=== PATIENT | female | born 1955 | race African-American/Black ===

== ENCOUNTER → 2016-04-07 | Day surgery (SDC) | payer OTHER, MEDICAID ==
[~2016-04-07] MED LIST: ALLO100T PO; CARI350T PO; CARV25TA PO; CETI10TA22 PO; CLON0.1T PO; CLOP75TA PO; CLOT15CR5; COLC0.6T34 PO; CRESTOR40 MG PO; ESTR1TAB15 PO; ESTR2TAB PO; EZET10TA3 PO; FENT1PAT15 TP; FERR-26 PO; FLUT16SP; FURO-68 PO; GABA-586 PO; GLIM4TAB2 PO; GLYB5TAB3 PO; HYDR-2868 PO; INSU100C4 SQ; INSU100V13 SQ; INSU100V8 SQ; IV RINGERS,LACTATED 1000ML 1,000 ML IV SCH; LIDO700A4 TP; LISI1TAB7 PO; LORA10TA3 PO; MAGN400C PO; METO10TA PO; METO2.5T PO; NALO25TA2 PO; NITR0.4T SL; OLOP2.5D EACHEYE; OXYC15TA PO; PANT40TA5 PO; POTA20TA12 PO; POTA25TA4 PO; PROAIR HFA8.5 GM INH; PROPOFOL 20 ML IV ONE; PROPOFOL 40 ML IV ONE; RANO10002 PO; [UNRECOGNIZED DRUG - OTHER]
--- NOTE | 2016-04-07 10:20 | PDOC1 ---
HISTORY & PHYSICAL H&P Adelaide Salmon [id number] 1955 03/04/2016 02:00 PM 03/23 [employer] [facility], [employer] OUR PATIENTS COME FIRST [address] [place] [address] Ph. [phone] Patient: Adelaide Salmon Date of : 1955 Date: 03/04/2016 2:00 PM Historian: self Visit Type: Office Visit This 60 year old female presents for H/o colorectal polyp. History of Present Illness: 1. H/o colorectal polyp Prior screening: colonoscopy. Risk Factors: h/o colon polyp.. Pertinent negatives include abdominal pain, change in bowel habits, change in stool caliber, constipation, decreased appetite, diarrhea, melena, nausea, rectal bleeding, vomiting, weight gain and weight loss. Additional information: No family history of colon cancer, No family history of Crohn's/colitis, No NSAID/ ASA use and Last colonoscopy 5 yrs ago. INTAKE COMMENTS: Intake Comments: Nurses Notes: Pt is here today for a recall colonoscopy pt has a history of colon polyps pt last colonoscopy was performed in Dec 2010. PROBLEM LIST: Problem Description Onset Date Epigastric pain 05/01/2015 Hematemesis, nausea presence unspecified 05/01/2015 Chronic pain 04/09/2010 Nephritis NOS in other disease 12/15/2013 Acute pain of right knee 04/19/2015 Postprocedural state finding 09/22/2011 Insulin use (long-term) in type 2 diabetes 01/23/2015 Breast lump in female 01/23/2015 Hypoglycemia associated with diabetes 01/23/2015 Community acquired pneumonia 06/07/2015 Anemia of chronic disease 03/19/2015 Acute painful diabetic neuropathy 07/19/2013 Insulin-dependent diabetes without complication 01/08/2009 Primary osteoarthritis of both knees 02/20/2015 Uncontrolled type 2 diabetes mellitus with diabetic neuropathy, with long-term current use of insulin 08/03/2015 IDDM (insulin dependent diabetes mellitus) 08/03/2015 Coronary atherosclerosis 01/08/2009 Hyperlipidemia 01/08/2009 Benign essential hypertension 01/08/2009 Anemia 03/25/2012 Uncontrolled diabetes mellitus, with long-term current use of insulin 2015 Backache 10/30/2011 Type 2 diabetes mellitus with diabetic nephropathy 07/05/2015 Type 2 diabetes mellitus with other diabetic kidney complication 09/28/2015 Arthralgia of knee, right 10/24/2015 Arthralgia of knee, left 10/24/2015 Right knee pain 01/17/2015 Long-term insulin use 07/05/2015 Type II diabetes mellitus with renal manifestations 12/15/2013 Type II diabetes mellitus, uncontrolled 12/15/2013 CAD, multiple vessel 01/20/2014 DM w/o complication type II, uncontrolled 01/23/2015 Hospital discharge follow-up 01/23/2015 Idiopathic chronic gout of multiple sites without tophus 01/17/2015 Obesity, unspecified obesity severity, unspecified obesity type 01/17/2015 Hematemesis without nausea 04/10/2015 Comprehensive diabetic foot examination, type 2 DM, encounter for 05/17/2015 PAST MEDICAL/SURGICAL HISTORY (Detailed) Disease/disorder Onset Date Management Date Comments colonoscopy 01/14/2011 EGD with dilation 01/14/2011 Back Surgery Tonsillectomy Hysterectomy Fibroid Tumor Removal Cardiac catherization 12/2013 Anemia Chronic Sinusitis Colonic Polyp Coronary artery disease Diabetes Diabetic Neuropathy Diverticulosis Esophagus Stricture Gastroparesis Colonoscopy GERD Hiatal Hernia Hyperlipidemia Hypertension heydi cath removal 2011 heydi cath 2010 iron transfusion Reflux Esophagitis 05/2008 EGD 05/2008 DIAGNOSTICS HISTORY: Test Ordered Interpretation Result completed EGD 03/01/2014 abnormal Imp: Antral gastritis, Reflux esophagitis BX: consistent with reactive gastropathy with mild chronic inflammation. 03/14/2014 EGD 04/10/2015 normal 04/16/2015 Test Ordered Ordering Comments Modifier EGD 03/01/2014 EGD 04/10/2015 Medications (Active): Started Medication Directions Instruction Stopped 10/24/2015 allopurinol 100 mg tablet take 4 Tablet (400MG) by ORAL route every day 01/20/2014 Aspir-81 81 mg tablet,delayed release take 1 tablet by oral route every day 12/26/2015 BETAMETH/CLOTRIM 0.5-10MG/GM CRM APPLY TO AFFECTED AREA TWICE DAILY MORNING & EVENING 09/13/2012 bisacodyl 5 mg tablet take 1 tablet (5MG) by oral route every day as needed for constipation 09/28/2015 cloNIDine HCL 0.1MG TAB TAKE ONE TABLET THREE TIMES DAILY 02/26/2016 CLOPIDOGREL BISULFAT 75MG TAB TAKE ONE TABLET DAILY 11/27/2015 Coreg 25 mg tablet take 1 tablet (25MG) by oral route 2 times every day with food 01/23/2016 Crestor 40 mg tablet TAKE ONE TABLET DAILY 12/26/2015 estradiol 1 mg tablet TAKE 1 TAB PO QD 02/25/2016 fentanyl 25 mcg/hr transdermal patch apply 1 patch by transdermal route every 72 hours 04/19/2013 ferrous sulfate 325 mg (65 mg iron) tablet,delayed release TAKE 1 TAB PO BID 11/27/2015 FLUTICASONE NASAL 50MCG AER ONE SPRAY IN EACH NOSTRIL TWICE DAILY 02/26/2016 GABAPENTIN 300MG CAP TAKE ONE CAPSULE THREE TIMES DAILY 01/23/2016 glyburide 5 mg tablet take 2 tablet (10MG) by ORAL route 2 times every day before meals 12/26/2015 hydralazine 25 mg tablet TAKE ONE TABLET TWICE DAILY WITH FOOD 06/12/2015 IPRATROPIUM/ALBUTERO 0.5-3MG/3ML RADHA USE ONE VIAL BY NEBULIZATION ROUTE FOUR TIMES DAILY 02/25/2016 Lasix 40 mg tablet TAKE ONE TABLET DAILY 12/26/2015 Levemir Flexpen 100 unit/mL (3 mL)solution subcutaneous insulin pen take 35 units SQ HS 10/29/2015 LORATADINE 10MG TAB TAKE ONE TABLET DAILY 12/26/2015 magnesium oxide 400 mg capsule take 1 po twice daily 06/12/2015 METOCLOPRAMIDE 10MG TAB TAKE ONE TABLET FOUR TIMES DAILY WITH MEALS AND AT BEDTIME 08/31/2015 METOLAZONE 2.5MG TAB TAKE ONE TABLET DAILY 04/19/2015 Movantik 25 mg tablet take 1 tablet by oral route every day in the morning 01/23/[address] ONE TAB UNDER TONGUE EVERY 5 MINUTES (NO MORE THEN THREE TABS DAILY) 02/20/2016 NOVOLOG FLEXPEN 100U/ML INJ USE 20-UNITS THREE TIMES DAILY 10/31/2014 OneTouch Ultra Test strips USE TO TEST 4 TIMES A DAY for diabetes mellitus, 250.02 02/25/2016 oxycodone 15 mg tablet take 1 tablet (15MG) by oral route every 6 hours 12/26/2015 pantoprazole 40 mg tablet,delayed release take 1 tablet by oral route every day 04/12/2013 Pen Needle 31 X 5/16" USE WITH YOUR INSULINE QID FOR DIABETES ( 250.02) 01/23/2015 polyethylene glycol 3350 17 gram/dose oral powder mix 17-grams twice daily in juice or water 02/26/2016 POTASSIUM CHLORIDE 20MEQ TER TAKE ONE TABLET THREE TIMES DAILY 02/25/2016 ProAir HFA 90 mcg/actuation aerosol inhaler inhale 2 puff by inhalation route every 4 hours as needed 02/26/2016 Soma 350 mg tablet take 1 tablet by oral route every 4 days and at bedtime 11/27/2015 ZETIA 10MG TAB TAKE ONE TABLET DAILY 02/10/2014 Zyrtec 10 mg tablet take 1 tablet by oral route every day Allergies: Ingredient Reaction Medication Name Comment LISINOPRIL angio edema angio edema MORPHINE ASPIRIN REVIEW OF SYSTEMS System Neg/Pos Details Constitutional Negative Chills, fever, malaise, weight gain and weight loss. ENMT Negative Sore throat. Eyes Negative Double vision. Respiratory Negative Dyspnea and wheezing. Cardio Negative Chest pain and irregular heartbeat/palpitations. GI Positive See HPI. GI Negative Abdominal pain, change in bowel habits, change in stool caliber, constipation, decreased appetite, diarrhea, melena, nausea, see HPI, rectal bleeding and vomiting. Negative Dysuria and hematuria. Endocrine Negative Cold intolerance and heat intolerance. Psych Negative Anxiety. Integumentary Negative Hives and rash. MS Negative Joint pain. Craig/Lymph Negative Easy bleeding and easy bruising. Allergic/Immuno Negative Food allergies. VITAL SIGNS Time BP mm/Hg Pulse /min Resp /min Temp F Ht ft Ht in Ht cm Wt lb Wt kg BMI kg/ m2 BSA m2 O2 Sat% 2:23 PM 132/62 88 16 98.0 5.0 11.00 180.34 301.20 136.622 42.01 98 Time Measured by 2:23 PM Jessica Victor PHYSICAL EXAM: Exam Findings Details Constitutional Normal Well developed. Eyes Normal Conjunctiva - Right: Normal, Left: Normal. Sclera - Right: Normal, Left: Normal. Nasopharynx Normal Lips/teeth/gums - Normal. Neck Exam Normal Inspection - Normal. Thyroid gland - Normal. Respiratory Normal Inspection - Normal. Auscultation - Normal. Cardiovascular Normal Regular rate and rhythm. No murmurs, gallops, or rubs. Vascular Normal Pulses - Carotids: Normal, Femoral: Normal, Dorsalis pedis: Normal. Abdomen Normal Inspection - Normal. Anterior palpation - No guarding. No abdominal tenderness. No hepatic enlargement. No splenic enlargement. No hernia. No Ascites. Skin Normal Inspection - Normal. Extremity Normal No edema. Psychiatric Normal Oriented to time, place, person, and situation. Appropriate mood and effect. Assessment/Plan # Detail Type Description 1. Assessment History of colon polyps (Z86.010). Patient Plan schedule colonoscopy at [facility] [place] Plan Orders Further diagnostic evaluations ordered today include(s) Colonoscopy to be performed today. She is to schedule a follow-up visit with Ezra White MD upon completion of work-up Electronically signed by: Ezra White MD 03/04/2016 02:43 PM Document generated by: Ezra White 03/04/2016 02:43 PM Rachael Miller MD, Family Practice; Jose Ramon Jama MD Internal Medicine; Miroslava Evans MD, Internal Medicine; Kinza White MD Internal Medicine; Ezra White MD, Gastroenterology; Julio Del Toro MD, Rheumatology, S. Arnel Huynh, Physical Medicine/Rehab JOdilia Del Real APRN ------ 04/07/2016 Patient seen and examined. No change in history and physical. EZRA WHITE MD Apr 07, 2016 10:20
--- NOTE | 2016-04-07 11:42 | PDOC4 ---
GI OP Report - Dr. Story Date/Time DATE: 04/07/16 TIME: 11:40 Attending Physician Ezra Story MD Referring Physician Indications Personal history of colonic polyps Pre-Op See the Anesthesia note for documentation of the administered medications Procedures Colonoscopy Findings - Internal hemorrhoids. - Diverticulosis in the sigmoid colon. - The examination was otherwise normal on direct and retroflexion views. - No specimens collected. Plan - Discharge patient to home. - Patient has a contact number available for emergencies. The signs and symptoms of potential delayed complications were discussed with the patient. Return to normal activities tomorrow. Written discharge instructions were provided to the patient. - Resume previous diet. - Continue present medications. - Repeat colonoscopy in 5 years for surveillance. - Return to my office as needed. EZRA STORY MD Apr 07, 2016 11:42
[2016-04-07 12:07] VITALS: BP 177/83
== END ==
LOC: ENDOS 09:33
PROVIDERS: ATTEND Internal Medicine Gastroenterology
DX: K64.0 First degree hemorrhoids (principal); K57.30 Diverticulosis of large intestine without perforation or abscess without bleeding; Z86.010 Personal history of colon polyps; D64.9 Anemia, unspecified; I10 Essential (primary) hypertension; I25.10 Atherosclerotic heart disease of native coronary artery without angina pectoris; E11.9 Type 2 diabetes mellitus without complications; J32.8 Other chronic sinusitis; E78.5 Hyperlipidemia, unspecified; Z79.4 Long term (current) use of insulin
CPT/HCPCS: 45378; J2704

== ENCOUNTER 2017-12-07 18:10 | Emergency (ER) | payer OTHER ==
[~2017-12-07] VITALS: Ht 170.2 cm; Wt 129.3 kg
[~2017-12-07 18:10] MED LIST changes: +AMLO5TAB7 PO; +ASPI-482 PO; +EZET10TA18 PO; -EZET10TA3 PO; -FERR-26 PO; +FERR325T14 PO; +HYDR12.58 PO; -IV RINGERS,LACTATED 1000ML 1,000 ML IV SCH; +MELO7.5T29 PO; +POLY119P19 PO; -PROPOFOL 20 ML IV ONE; -PROPOFOL 40 ML IV ONE
[2017-12-07 18:31] VITALS: BP 151/64
[2017-12-07] MEDS ORDERED: INDO50CA5 PO (19:07)
--- NOTE | 2017-12-07 19:07 | PHYS DOC ---
Past Medical History Past Medical History: Bronchitis, CHF, CVA, Diabetes-Type II, High Cholesterol , Hypertension, Pneumonia Additional Past Medical Histor: SLEEP APNEA GOUT ANEMIA GERD Past Surgical History: Hysterectomy, Tonsillectomy, Other Additional Past Surgical Histo: cardiac cath with stents, tumor removal from inner ear Alcohol Use: None Drug Use: None Adult General Chief Complaint Chief Complaint: FOOT INJURY PAIN HPI HPI 62-year-old female presents for evaluation of gout in the left great toe. She reports history of this. She takes allopurinol. She denies injury. She reports this is how her gout always presents. Review of Systems Review of Systems Constitutional: Denies fever or chills [] Eyes: Denies change in visual acuity, redness, or eye pain [] HENT: Denies nasal congestion or sore throat [] Musculoskeletal: Denies back pain Integument: Denies rash or skin lesions [] Neurologic: Denies headache, focal weakness or sensory changes [] Endocrine: Denies polyuria or polydipsia [] All other systems were reviewed and found to be within normal limits, except as documented in this note. Allergies Allergies Allergies Coded Allergies Type Severity Reaction Last Updated Verified aspirin Allergy Severe SOB, CHEST PAIN 04/07/16 Yes latex Allergy Severe Swelling 04/07/16 Yes Physical Exam Physical Exam Constitutional: Well developed, well nourished, no acute distress, non-toxic appearance. [] Skin: Warm, dry, Back: No tenderness, no CVA tenderness. [] Extremities: Left great toe is erythematous, very tender to touch, consistent with gout Neurologic: Alert and oriented X 3, normal motor function, normal sensory function, no focal deficits noted. [] Psychologic: Affect normal, judgement normal, mood normal. [] Current Patient Data Vital Signs Vital Signs Date Time Temp Pulse Resp B/P (MAP) Pulse Ox O2 Delivery O2 Flow Rate FiO2 12/07/17 18:31 98.6 80 20 151/64 (93) 98 Room Air 98.6 EKG EKG [] Radiology/Procedures Radiology/Procedures [] Course & Med Decision Making Course & Med Decision Making Patient reports she has taken indomethacin in the past and tolerated it. She would like to try this again. She will call her doctor tomorrow to care as for her gout and discuss further treatment options at that time. [] Gloria Disclaimer Dragon Disclaimer This electronic medical record was generated, in whole or in part, using a voice recognition dictation system. Departure Departure Impression: Primary Impression: Gout Disposition: HOME, SELF-CARE Condition: STABLE Referrals: DORA MENENDEZ MD (PCP) Patient Instructions: Gout, [id number] Scripts Indomethacin (INDOMETHACIN) 50 Mg Capsule 1 CAP PO TID, #30 CAP 0 Refills Prov: JOSE DAVID HITCHCOCK APRN 12/07/17 JOSE DAVID HITCHCOCK APRN Dec 07, 2017 19:07
== END 2017-12-07 19:26 | disposition home or self-care (01) ==
LOC: ER 18:10
DX: M10.9 Gout, unspecified (principal); I50.9 Heart failure, unspecified; E11.9 Type 2 diabetes mellitus without complications; E78.00 Pure hypercholesterolemia, unspecified; K21.9 Gastro-esophageal reflux disease without esophagitis; G47.30 Sleep apnea, unspecified; Z86.73 Personal history of transient ischemic attack (TIA), and cerebral infarction without residual deficits; Z86.2 Personal history of diseases of the blood and blood-forming organs and certain disorders involving the immune mechanism; Z88.6 Allergy status to analgesic agent; Z91.040 Latex allergy status
CPT/HCPCS: 99283

== ENCOUNTER → 2017-12-16 | Outpatient (CLI) | payer OTHER ==
[2017-12-07 18:31] VITALS: BP 151/64
[~2017-12-16] MED LIST changes: +INDO50CA5 PO
--- NOTE | 2017-12-16 16:49 | KCIC ---
History: Estrogen deficiency. Black female. Comparison: None. Findings: Bone Densitometry was performed with dual photon absorption of the lumbar spine and left hip. Lumbar Spine: Bone density is 1.617 g/cm2 for L1-L4. T-Score is 5.2. Z-score is 6.1. Spinal fusion hardware is seen at the L5 and S1 levels. Left hip: Bone density is 1.229 g/cm2. T-Score is 2.4. Z-score is 2.2. IMPRESSION: Bone mineral density of lumbar spine and left hip appears within normal limits. World Health definition of osteoporosis and osteopenia: Normal = T-Score at or above -1.0; osteopenia = T-score between -1.0 and -2.5; osteoporosis = T-score at or below -2.5 Electronically signed by: Jose Ramon Gutierrez MD (12/16/2017 4:46 PM) [email or web address]
--- NOTE | 2017-12-16 17:23 | KCIC ---
Bilateral digital screening mammograms with 3-D tomosynthesis: Reason for examination: Routine screening. Comparison is made to previous studies dated 01/21/2016 and 08/17/2014. Bilateral mammograms in CC and oblique projections were obtained with 2-D imaging and 3-D tomosynthesis imaging on a Siemens Inspiration unit and reviewed on the workstation. Interpretation was made with the benefit of CAD. The skin and nipples show no abnormalities. No abnormal axillary lymph nodes are seen. The breast parenchyma shows scattered fatty and fibroglandular density. (Breast density: Category B.) There are no dominant masses, suspicious calcifications or architectural distortion. Impression: No evidence of malignancy. Recommend routine screening. BI-RAD Category 1: Negative. "Our facility is accredited by the [employer] Mammography Program." This patient's information has been entered into a reminder system for the patient to be notified with the results of her examination and a target date for the next mammogram. Electronically signed by: Lizzy Haddad MD (12/16/2017 5:19 PM) [id number]
== END | disposition home or self-care (01) ==
LOC: KCIC MAMMO 12:50
PROVIDERS: ATTEND Internal Medicine
DX: Z12.31 Encounter for screening mammogram for malignant neoplasm of breast (principal); E28.39 Other primary ovarian failure
CPT/HCPCS: 77063; 77067; 77080

== ENCOUNTER 2018-03-02 10:56 | Emergency (ER) | payer OTHER ==
[~2018-03-02] VITALS: Ht 180.3 cm; Wt 138.8 kg
[~2018-03-02 10:56] MED LIST changes: -GABA-586 PO; +GABA300C18 PO
[2018-03-02 11:30] VITALS: BP 150/67
[2018-03-02] MEDS ORDERED: CYCL5TAB PO (11:45)
--- NOTE | 2018-03-02 11:46 | PHYS DOC ---
Past Medical History Past Medical History: Bronchitis, CHF, CVA, Diabetes-Type II, High Cholesterol , Hypertension, Pneumonia Additional Past Medical Histor: SLEEP APNEA GOUT ANEMIA GERD Past Surgical History: Hysterectomy, Tonsillectomy, Other Additional Past Surgical Histo: cardiac cath with stents, tumor removal from inner ear Alcohol Use: None Drug Use: None Adult General Chief Complaint Chief Complaint: Neck Pain [facility] HPI Patient is a 62 year old female who presents with right sided neck pain. The patient states that she developed the neck pain upon awakening 2 days ago. She states that has been persistent. She denies any known injury. She denies any radiation of the pain or paresthesias. Review of Systems Review of Systems Constitutional: Denies fever or chills [] Eyes: Denies change in visual acuity, redness, or eye pain [] HENT: Denies nasal congestion or sore throat [] Respiratory: Denies cough or shortness of breath [] Cardiovascular: No additional information not addressed in HPI [] GI: Denies abdominal pain, nausea, vomiting, bloody stools or diarrhea [] : Denies dysuria or hematuria [] Musculoskeletal: See history of present illness Integument: Denies rash or skin lesions [] Neurologic: Denies headache, focal weakness or sensory changes [] Endocrine: Denies polyuria or polydipsia [] All other systems were reviewed and found to be within normal limits, except as documented in this note. Allergies Allergies Allergies Coded Allergies Type Severity Reaction Last Updated Verified aspirin Allergy Severe SOB, CHEST PAIN 04/07/16 Yes latex Allergy Severe Swelling 04/07/16 Yes Physical Exam Physical Exam Constitutional: Well developed, well nourished, no acute distress, non-toxic appearance. [] Neck: Normal range of motion, tenderness right trapezius with palpation, supple , no stridor. [] Cardiovascular:Heart rate regular rhythm, no murmur [] Lungs & Thorax: Bilateral breath sounds clear to auscultation [] Abdomen: Bowel sounds normal, soft, no tenderness, no masses, no pulsatile masses. [] Skin: Warm, dry, no erythema, no rash. [] Back: No tenderness, no CVA tenderness. [] Extremities: No tenderness, no cyanosis, no clubbing, ROM intact, no edema. [] Neurologic: Alert and oriented X 3, normal motor function, normal sensory function, no focal deficits noted. [] Psychologic: Affect normal, judgement normal, mood normal. [] Current Patient Data Vital Signs Vital Signs Date Time Temp Pulse Resp B/P (MAP) Pulse Ox O2 Delivery O2 Flow Rate FiO2 03/02/18 11:30 98.1 86 20 150/67 (94) 100 Room Air 98.1 EKG EKG [] Radiology/Procedures Radiology/Procedures [] Course & Med Decision Making Course & Med Decision Making Pertinent Labs and Imaging studies reviewed. (See chart for details) [] Dragon Disclaimer Dragon Disclaimer This electronic medical record was generated, in whole or in part, using a voice recognition dictation system. Departure Departure Impression: Primary Impression: Muscle strain Disposition: HOME, SELF-CARE Condition: STABLE Referrals: DORA MENENDEZ MD (PCP) Patient Instructions: Muscle Strain Additional Instructions: Take the muscle relaxant as prescribed. Use hot compresses to help with muscle relaxation. Follow-up with your primary care provider if not improving in 3 days or return to the emergency department if worsening. Scripts Cyclobenzaprine Hcl (CYCLOBENZAPRINE HCL) 5 Mg Tablet 1 TAB PO QHS for muscle strain, #15 TAB Prov: SUZANNA CUMMINS APRN 03/02/18 Attending Signature Attending Signature I have reviewed the PA/GREEN END MAN'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 I was available for consultation as needed during the patient's visit in the emergency department. I agree with the clinical impression, plan, and disposition. SUZANNA CUMMINS APRN Mar 02, 2018 11:46 HARRELLENRIQUE DO Mar 03, 2018 14:15
== END 2018-03-02 12:03 | disposition home or self-care (01) ==
LOC: ER 10:56
DX: S16.1XXA Strain of muscle, fascia and tendon at neck level, initial encounter (principal); I11.0 Hypertensive heart disease with heart failure; I50.9 Heart failure, unspecified; E11.9 Type 2 diabetes mellitus without complications; K21.9 Gastro-esophageal reflux disease without esophagitis; Z86.73 Personal history of transient ischemic attack (TIA), and cerebral infarction without residual deficits; M10.9 Gout, unspecified; Z95.5 Presence of coronary angioplasty implant and graft; Z91.040 Latex allergy status; Z88.6 Allergy status to analgesic agent; X58.XXXA Exposure to other specified factors, initial encounter; Y93.89 Activity, other specified; Y92.89 Other specified places as the place of occurrence of the external cause; Y99.8 Other external cause status
CPT/HCPCS: 99283

== ENCOUNTER 2018-04-15 11:44 | Emergency (ER) | payer OTHER ==
[~2018-04-15] VITALS: Ht 180.3 cm; Wt 138.8 kg
[~2018-04-15 11:44] MED LIST changes: +ALBU2.5V8 INH; +CYCL5TAB PO; -PROAIR HFA8.5 GM INH
[2018-04-15 12:09] VITALS: BP 193/91
--- NOTE | 2018-04-15 12:22 | PHYS DOC ---
Past Medical History Past Medical History: Bronchitis, CHF, CVA, Diabetes-Type II, High Cholesterol , Hypertension, Pneumonia Additional Past Medical Histor: SLEEP APNEA GOUT ANEMIA GERD Past Surgical History: Hysterectomy, Tonsillectomy, Other Additional Past Surgical Histo: cardiac cath with stents, tumor removal from inner ear Alcohol Use: None Drug Use: None Adult General Chief Complaint Chief Complaint: EARACHE/EAR PAIN HPI HPI Is a 63-year-old female who presents with complaint of left ear pain for approximately 1 month. Patient states that pain radiates down into her jaw. She states that she had dental work little over a month ago and was told by her doctor that this could be pain associated with the dental work. Patient does indicate that she has run a fever and has taken Tylenol for this. Patient has not actually checked her temperature. She states the pain is worsened with chewing. She denies any chest pain or shortness of breath. She rates the pain in her ear at a 5 out of 10. Review of Systems Review of Systems Constitutional: Complains of subjective fever without chills [] HENT: Positive left ear pain [] Respiratory: Denies cough or shortness of breath [] Cardiovascular: No additional information not addressed in HPI [] Integument: Denies rash or skin lesions [] Neurologic: Denies headache, focal weakness or sensory changes [] Allergies Allergies Allergies Coded Allergies Type Severity Reaction Last Updated Verified aspirin Allergy Severe SOB, CHEST PAIN 04/07/16 Yes latex Allergy Severe Swelling 04/07/16 Yes Physical Exam Physical Exam Constitutional: Well developed, well nourished, no acute distress, non-toxic appearance. [] HENT: Normocephalic, atraumatic, bilateral external ears normal, left TM is obscured with your cerumen. [] Neck: Normal range of motion, no tenderness, supple, no stridor. [] Cardiovascular: Regular rate and rhythm [] Lungs & Thorax: Bilateral breath sounds clear to auscultation [] Extremities: No tenderness, no cyanosis, no clubbing, ROM intact, no edema. [] Current Patient Data Vital Signs Vital Signs Date Time Temp Pulse Resp B/P (MAP) Pulse Ox O2 Delivery O2 Flow Rate FiO2 04/15/18 12:09 97.8 79 18 193/91 (125) 100 Room Air 97.8 EKG EKG [] Radiology/Procedures Radiology/Procedures [] Course & Med Decision Making Course & Med Decision Making Pertinent Labs and Imaging studies reviewed. (See chart for details) [] Dragon Disclaimer Dragon Disclaimer This electronic medical record was generated, in whole or in part, using a voice recognition dictation system. Departure Departure Impression: Primary Impression: Impacted cerumen of left ear Additional Impression: Otitis media Disposition: HOME, SELF-CARE Condition: STABLE Referrals: DORA MENENDEZ MD (PCP) Patient Instructions: Cerumen Impaction, Otitis Media, Adult Scripts Amoxicillin/Potassium Clav (AUGMENTIN 875-125 TABLET) 1 Each Tablet 1 TAB PO BID, #20 TAB Prov: KALIE WALLS Jr. DO 04/15/18 Carbamide Peroxide (MURINE EAR WAX REMOVAL SYSTEM) 15 Ml Drops 15 ML OT DAILY PRN for ear wax obstruction, #15 ML Prov: KALIE WALLS Jr. DO 04/15/18 Problem Qualifiers Additional Impression: Otitis media Otitis media type: unspecified Chronicity: acute Qualified Codes: H66.90 - Otitis media, unspecified, unspecified ear KALIE WALLS Jr. DO Apr 15, 2018 12:22
[2018-04-15] MEDS ORDERED: AMOX1TAB61 PO (13:11)
[2018-04-15] MEDS ORDERED: CARB15DR76 OT (13:11)
== END 2018-04-15 13:16 | disposition home or self-care (01) ==
LOC: ER 11:44
DX: H61.22 Impacted cerumen, left ear (principal); H66.92 Otitis media, unspecified, left ear; I11.0 Hypertensive heart disease with heart failure; I50.9 Heart failure, unspecified; E11.9 Type 2 diabetes mellitus without complications; E78.00 Pure hypercholesterolemia, unspecified; Z86.73 Personal history of transient ischemic attack (TIA), and cerebral infarction without residual deficits; K21.9 Gastro-esophageal reflux disease without esophagitis; M10.9 Gout, unspecified; Z95.5 Presence of coronary angioplasty implant and graft; Z88.6 Allergy status to analgesic agent; Z91.040 Latex allergy status
CPT/HCPCS: 99283

== ENCOUNTER → 2018-12-21 | Outpatient (CLI) | payer OTHER ==
[~2018-12-21] MED LIST changes: +AMLO5TAB10 PO; -AMLO5TAB7 PO; +AMOX1TAB61 PO; +CARB15DR76 OT; -EZET10TA18 PO; +EZET10TA20 PO; +INDO50CA15 PO; -INDO50CA5 PO; +LISI1TAB20 PO; -LISI1TAB7 PO; -NITR0.4T SL; +NITR0.4T24 SL; -PANT40TA5 PO; +PANT40TA77 PO
--- NOTE | 2018-12-21 10:13 | RAD ---
DATE: 12/21/2018 EXAM: MAMMO JOSE MANUEL SCREENING BILATERAL HISTORY: Routine screening COMPARISON: 08/09/2014, 01/21/2016, 12/16/2017 mammographic exams This study was interpreted with the benefit of Computerized Aided Detection (CAD). Breast Density: SCATTERED The breast parenchyma shows scattered fibroglandular densities. Breast parenchyma level B. FINDINGS: No suspicious calcification, mass, or distortion. IMPRESSION: Stable. BI-RADS CATEGORY: 1 NEGATIVE RECOMMENDED FOLLOW-UP: 12M 12 MONTH FOLLOW-UP PQRS compliance statement: Patient information was entered into a reminder system with a target due date in one year for the next mammogram. Mammography is a sensitive method for finding small breast cancers, but it does not detect them all and is not a substitute for careful clinical examination. A negative mammogram does not negate a clinically suspicious finding and should not result in delay in biopsying a clinically suspicious abnormality. "Our facility is accredited by the [employer] Mammography Program."
== END | disposition home or self-care (01) ==
LOC: MAMMO 09:13
PROVIDERS: ATTEND Internal Medicine
DX: Z12.31 Encounter for screening mammogram for malignant neoplasm of breast (principal); N64.89 Other specified disorders of breast
CPT/HCPCS: 77063; 77067

== ENCOUNTER 2019-03-16 11:18 | Emergency (ER) | payer OTHER ==
[~2019-03-16] VITALS: Ht 180.3 cm; Wt 138.8 kg
[~2019-03-16 11:18] MED LIST changes: -GLIM4TAB2 PO; +GLIM4TAB4 PO
[2019-03-16] MEDS: IBUPROFEN 400 MG TABLET. PO ONE (11:37)
[2019-03-16] MEDS: MORPHINE SULFATE 4 MG/ML VIAL. IM ONE (11:38)
[2019-03-16 12:16] LABS: INFLUENZA A PATIENT POSITIVE (NEGATIVE); INFLUENZA B PATIENT NEGATIVE (NEGATIVE)
[2019-03-16 12:19] LABS: BILIRUBIN,URINE NEGATIVE (NEG); CLARITY,URINE CLEAR; COLOR,URINE YELLOW; NITRITE,URINE NEGATIVE (NEG); PROTEIN,URINE NEGATIVE (NEG-TRACE); UROBILINOGEN,URINE 0.2 mg/dL (0.2 mg/dL)
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
[2019-03-16 12:24] LABS: SQUAMOUS EPITHELIAL CELL,UR MANY /LPF
[2019-03-16 12:25] LABS: BACTERIA,URINE FEW /HPF (0-FEW); RBC,URINE OCC /HPF (0-2); WBC,URINE OCC /HPF (0-4)
[2019-03-16] MEDS ORDERED: BENZ100C PO (13:23)
[2019-03-16] MEDS ORDERED: OSEL75CA PO (13:23)
[2019-03-16] MEDS ORDERED: ALBU2.5V8 IH (13:23)
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
[2019-03-16 13:33] VITALS: BP 138/65
== END 2019-03-16 13:37 | disposition home or self-care (01) ==
LOC: ER 11:18
DX: S39.012A Strain of muscle, fascia and tendon of lower back, initial encounter (principal); G89.29 Other chronic pain; J10.1 Influenza due to other identified influenza virus with other respiratory manifestations; E11.65 Type 2 diabetes mellitus with hyperglycemia; E66.01 Morbid (severe) obesity due to excess calories; Z68.41 Body mass index [BMI] 40.0-44.9, adult; I11.0 Hypertensive heart disease with heart failure; I50.9 Heart failure, unspecified; E78.00 Pure hypercholesterolemia, unspecified; K21.9 Gastro-esophageal reflux disease without esophagitis; M10.9 Gout, unspecified; Z90.710 Acquired absence of both cervix and uterus; Z95.5 Presence of coronary angioplasty implant and graft; Z91.040 Latex allergy status; Z88.6 Allergy status to analgesic agent; V49.59XA Passenger injured in collision with other motor vehicles in traffic accident, initial encounter; Y93.89 Activity, other specified; Y92.488 Other paved roadways as the place of occurrence of the external cause; Y99.8 Other external cause status
CPT/HCPCS: 72100; 81001; 82962; 87804; 96372; 99285; J2270

== ENCOUNTER 2021-01-25 19:05 | Emergency (ER) | payer OTHER ==
[~2021-01-25] VITALS: Ht 180.3 cm; Wt 115.0 kg
[~2021-01-25 19:05] MED LIST changes: +ALBU2.5V8 IH; +AMLO-186 PO; -AMLO5TAB10 PO; +BENZ100C PO; -CETI10TA22 PO; +CETI10TA74 PO; +ESTR-113 PO; -ESTR1TAB15 PO; -ESTR2TAB PO; +ESTR2TAB3 PO; -GLIM4TAB4 PO; +GLIM4TAB8 PO; -LISI1TAB20 PO; +LISI1TAB39 PO; -NALO25TA2 PO; +NALO25TA4 PO; -OLOP2.5D EACHEYE; +OLOP2.5D12 EACHEYE; +OSEL75CA PO; -OXYC15TA PO; +OXYC15TA3 PO
[2021-01-25 20:11] VITALS: BP 173/76
[2021-01-25] MEDS ORDERED: CARBAMIDE PEROXIDE 6.5% OTIC SOLUTION 15ML BOTTLE. AD STA (20:24)
--- NOTE | 2021-01-25 20:29 | PHYS DOC ---
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 Patient states that today her grandchildren were trying to call her and she could not hear the phone, she tried to place a Q-tip in her ear and said she met with resistance. Patient denies trauma to the ear and denies drainage. No fever or chills. (CESAR ESPITIA APRN) Review of Systems: Review of Systems: Constitutional: Denies fever or chills. [] Eyes: Denies change in visual acuity. [] HENT: Decreased hearing in the right ear possible foreign body Respiratory: Denies cough or shortness of breath. [] Cardiovascular: Denies chest pain or edema. [] GI: Denies abdominal pain, nausea, vomiting, bloody stools or diarrhea. [] : Denies dysuria. [] Musculoskeletal: Denies back pain or joint pain. [] Integument: Denies rash. [] Neurologic: Denies headache, focal weakness or sensory changes. [] Endocrine: Denies polyuria or polydipsia. [] Lymphatic: Denies swollen glands. [] Psychiatric: Denies depression or anxiety. [] (CESAR ESPITIA PANMAN) Heart Score: C/O Chest Pain: N/A Risk Factors: Risk Factors: DM, Current or recent (<one month) smoker, HTN, HLP, family history of CAD, obesity. Risk Scores: Score 0 - 3: 2.5% MACE over next 6 weeks - Discharge Home Score 4 - 6: 20.3% MACE over next 6 weeks - Admit for Clinical Observation Score 7 - 10: 72.7% MACE over next 6 weeks - Early Invasive Strategies (CESAR ESPITIA APRN) Current Medications: Current Medications Medications (Trade) Dose Ordered Sig/Tesfaye Start Time Stop Time Status Last Admin Dose Admin Carbamide Peroxide (Debrox) 5 drop 1X STAT 01/25/21 20:24 01/25/21 20:25 UNV (CESAR ESPITIA APRN) Allergies: Allergies: Allergies Coded Allergies Type Severity Reaction Last Updated Verified aspirin Allergy Severe SOB, CHEST PAIN 04/07/16 Yes latex Allergy Severe Swelling 04/07/16 Yes (CESAR ESPITIA APRN) Physical Exam: PE: Constitutional: Well developed, well nourished, no acute distress, non-toxic appearance. [] HENT: Normocephalic, atraumatic, unable to view tympanic membrane due to the large amount of earwax in the otitis externa, this is with bilateral ears Eyes: PERRLA, EOMI, conjunctiva normal, no discharge. [] Neck: Normal range of motion, no tenderness, supple, no stridor. [] Cardiovascular:Heart rate regular rhythm, no murmur [] Lungs & Thorax: Bilateral breath sounds clear to auscultation [] Abdomen: Bowel sounds normal, soft, no tenderness, no masses, no pulsatile masses. [] Skin: Warm, dry, no erythema, no rash. [] Back: No tenderness, no CVA tenderness. [] Extremities: No tenderness, no cyanosis, no clubbing, ROM intact, no edema. [] Neurologic: Alert and oriented X 3, normal motor function, normal sensory function, no focal deficits noted. [] Psychologic: Affect normal, judgement normal, mood normal. [] (CESAR ESPITIA APRN) Current Patient Data: Vital Signs: Vital Signs Date Time Temp Pulse Resp B/P (MAP) Pulse Ox O2 Delivery O2 Flow Rate FiO2 01/25/21 20:11 98.5 73 16 173/76 (108) 98 Room Air 98.5 (CESAR ESPITIA APRN) EKG: EKG: [] (CESAR ESPITIA PANMAN) Radiology/Procedures: Radiology/Procedures: [] (CESAR ESPITIA APRN) Course & Med Decision Making: Course & Med Decision Making Pertinent Labs and Imaging studies reviewed. (See chart for details) 2020 attempted to irrigate right ear with normal saline hydroperoxide without result. Will instill Debrox into bilateral ears and will have patient sit for a few minutes to let that soften up the wax 2104 ED RN was able to irrigate moderate amount of earwax out of the ear, was able to visualize the tympanic membrane which was free of erythema. Patient states she is able to hear. Patient will be discharged from the emergency department, will be instructed to use Debrox ear product as labeled directed [] (CESAR ESPITIA APRN) Dragon Disclaimer: Dragon Disclaimer: This electronic medical record was generated, in whole or in part, using a voice recognition dictation system. (CESAR ESPITIA APRN) Departure Departure Impression: Primary Impression: Impacted cerumen, right ear Disposition: HOME / SELF CARE / HOMELESS Condition: STABLE Referrals: DORA MENENDEZ MD (PCP) Patient Instructions: Cerumen Impaction Additional Instructions: Do not use Q-tips in your ear Use Debrox [id number] earwax product as labeled directed Return to the emergency department if having any drainage from your ear, ear becomes painful in any way or you have any other concerns Follow-up with your primary care physician as needed Attending Signature Attending Signature I have reviewed the 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 I was available for consultation as needed during the patient's visit in the emergency department. I agree with the clinical impression, plan, and disposition. (ENRIQUE HARRELL DO) CESAR ESPITIA APRN Jan 25, 2021 20:29 ENRIQUE HARRELL DO Jan 26, 2021 01:52
== END 2021-01-25 21:51 | disposition home or self-care (01) ==
LOC: ER 19:05
DX: H61.21 Impacted cerumen, right ear (principal); I11.0 Hypertensive heart disease with heart failure; I50.9 Heart failure, unspecified; E11.9 Type 2 diabetes mellitus without complications; E78.00 Pure hypercholesterolemia, unspecified; K21.9 Gastro-esophageal reflux disease without esophagitis; Z86.73 Personal history of transient ischemic attack (TIA), and cerebral infarction without residual deficits; Z95.5 Presence of coronary angioplasty implant and graft; Z88.6 Allergy status to analgesic agent; Z91.040 Latex allergy status
CPT/HCPCS: 69209; 99282

== ENCOUNTER → 2021-03-19 | Outpatient (CLI) | payer OTHER ==
--- NOTE | 2021-03-19 12:28 | KCIC ---
EXAM: Bilateral digital screening mammogram with tomosynthesis. HISTORY: 65-year-old female presents for screening mammography. TECHNIQUE: Full-field digital craniocaudal and mediolateral oblique 2D and 3D tomosynthesis images of both breasts are obtained for evaluation. Computer aided detection was applied. COMPARISON: 12/21/2018 and 12/16/2017 BREAST PARENCHYMAL DENSITY: Level B - Scattered fibroglandular densities. FINDINGS: There is no new suspicious mass, microcalcification or region of architectural distortion. IMPRESSION: BI-RADS Category 2: Benign finding(s). RECOMMENDATION: Annual mammography is recommended. If your mammogram demonstrates that you have dense breast tissue, which could hide abnormalities, and if you have other risk factors for breast cancer that have been identified, you might benefit from s upplemental screening tests that may be suggested by your ordering physician. Dense breast tissue, i n and of itself, is a relatively common condition. This information is not provided to cause undue c oncern, but rather to raise your awareness and to promote discussion with your physician regarding th e presence of other risk factors, in addition to dense breast tissue. A report of your mammography re sults will be sent to you and your physician. You should contact your physician if you have any ques tions or concerns regarding this report. Mammography is a sensitive method for finding small breast cancers, but it does not detect them all a nd is not a substitute for careful clinical examination. A negative mammogram does not negate a clin ically suspicious finding and should not result in delay in biopsying a clinically suspicious abnorma lity. PQRS compliance statement - Patient information was entered into a reminder system with a target due date for the next mammogram. "Our facility is accredited by the [employer] Mammography Program." Electronically signed by: Evette Renner MD (03/19/2021 12:26 PM) [email or web address]
--- NOTE | 2021-03-19 12:44 | KCIC ---
EXAM: DUAL ENERGY X-RAY ABSORPTIOMETRY (DEXA). HISTORY: Postmenopausal screening. FINDINGS: The lowest measured T-score is 1.7 in the left hip, based on a bone mineral density of 1.15 1 g/cm^2. Refer to the worksheets for full detail. There has been a 6.4 percent decrease in density of the left hip 2.1 percent decrease in density of t he lumbar spine compared to a study performed 12/16/2017. IMPRESSION: 1. Normal. Bone mineral density yields a T-score of -1.0 or greater. Fracture risk is low. 2. FRAX report: Not calculated. METHODOLOGY: Dual energy x-ray absorptiometry was performed to measure bone mineral density. The foll owing analysis is based on the 2019 Official Positions of the International Society for Clinical Dens itometry: Measurements of the hips and the average of L1-L4 are preferred. When the spine and/or hip cannot be feasibly measured or interpreted, or in the setting of hyperparathyroidism, distal radial bone minera l density may be measured. The lumbar spine T-score is based on the average bone mineral density of L1-L4. In the setting of art ifact or anatomic abnormality, some lumbar levels may be excluded, and the remaining levels used for calculation. A single lumbar level is not used for diagnosis, and if only a single level is available for assessment, another anatomic site will be used to assign a diagnosis. The hip T-score is based on the bone mineral density measurement of the femoral neck or total proxima l femur of either side, whichever is lowest. Bilateral mean values are not used for diagnosis. The forearm T-score is derived from 33% of the distal radius of the nondominant forearm. Electronically signed by: Evette Renner MD (03/19/2021 12:42 PM) [id number]
== END ==
LOC: KCIC MAMMO 10:54
PROVIDERS: ATTEND Internal Medicine
DX: Z12.31 Encounter for screening mammogram for malignant neoplasm of breast (principal); Z78.0 Asymptomatic menopausal state
CPT/HCPCS: 77063; 77067; 77080

== ENCOUNTER → 2021-03-25 | Outpatient (CLI) | payer OTHER ==
[~2021-03-25] MED LIST changes: +GADOTERATE 5 MMOL/10ML VIAL. IVP ONE
--- NOTE | 2021-03-25 15:28 | KCIC ---
EXAMINATION: Magnetic resonance imaging (MRI) of the brain and brainstem without and with contrast 03/25/2021 10:10 AM HISTORY: Speech disturbance. Chronic aphasia. TECHNIQUE: Multiplanar multi-weighted MRI of the brain and brainstem was performed without and with i ntravenous contrast using the general brain protocol. Contrast information: 18 mL Gadolinium based contrast COMPARISON: MRI brain 12/31/2015 FINDINGS: The scalp and calvarium are normal. The superior sagittal sinus demonstrates normal venous flow. The corpus callosum is normal in shape and signal intensity. The posterior fossa is unremarkable. The p ituitary and sella are normal. The brainstem and craniocervical junction are unremarkable. There are T2/FLAIR signal hyperintense foci in the periventricular and subcortical white matter most suggestiv e of mild chronic small vessel ischemic changes. Diffusion weighted images reveal no hyperintensities to suggest acute cerebral infarction. The suscep tibility weighted sequences reveal no evidence of acute or chronic hemorrhage. The ventricles are nor mal in size and position without evidence of hydrocephalus. There are no areas of abnormal contrast enhancement. The paranasal sinuses are normal. The visualized portions of the mastoids are unremarkable. The orbi ts appear normal. Normal flow voids are demonstrated in the carotid arteries and basilar artery. IMPRESSION: No evidence for acute or subacute ischemia. There are T2/FLAIR signal hyperintense foci in the periventricular and subcortical white matter most suggestive of mild chronic small vessel ischemic changes. Electronically signed by: Haylee Camarillo MD (03/25/2021 3:26 PM) [id number]
== END ==
LOC: KCIC MRI 09:32
PROVIDERS: ATTEND Internal Medicine
DX: G93.89 Other specified disorders of brain (principal); R47.9 Unspecified speech disturbances
CPT/HCPCS: 70553; 82565; A9575

== ENCOUNTER → 2021-08-05 | Day surgery (SDC) | payer OTHER ==
[~2021-08-05] VITALS: Ht 180.3 cm; Wt 100.0 kg
[~2021-08-05] MED LIST changes: -GADOTERATE 5 MMOL/10ML VIAL. IVP ONE; +IV RINGERS,LACTATED 1000ML 1,000 ML IV ONE; +PROPOFOL 10 MG/ML (20ML) VIAL. IV ONE
[2021-08-05 13:01] VITALS: BP 171/78
--- NOTE | 2021-08-05 13:12 | PDOC1 ---
History and Physical Date of Admission Date of Admission DATE: 08/05/21 TIME: 13:07 Identification/Chief Complaint Chief Complaint Colon polyp surveillance Source Source: Chart review, Patient History of Present Illness History of Present Illness 66 y/o female with h/o colon polyps. Last surveillance 2016. Denies pain, diarrhea or overt bleeding. Occasional constipation. Known diverticulosis and IH's. H/o heartburn on pantoprazole. No dysphagia, PUD, GB, liver or pancreatic history. Past Medical History Cardiovascular: CAD, HTN, Hyperlipidemia Pulmonary: Other CENTRAL NERVOUS SYSTEM: Periperal neuropathy GI: Constipation, GERD Heme/Onc: Anemia NOS Psych: Depression Musculoskeletal: Osteoarthritis Rheumatologic: Gout Endocrine: Diabetes Past Surgical History Past Surgical History: Cataract Removal, Tonsillectomy, Hysterectomy, Other Family History Family History: Diabetes Social History Smoke: <1 pack per day ALCOHOL: occassional Drugs: None Current Medications Current Medications Active Scripts Active Tessalon Perle (Benzonatate) 100 Mg Capsule 1 Cap PO TID Tamiflu (Oseltamivir Phosphate) 75 Mg Capsule 1 Cap PO BID Proair Hfa Inhaler (Albuterol Sulfate) 8.5 Gm Hfa.aer.ad 2 Puff IH PRN Q4-6HRS PRN 21 Days Murine Ear Wax Removal System (Carbamide Peroxide) 15 Ml Drops 15 Ml OT DAILY PRN Cyclobenzaprine Hcl 5 Mg Tablet 1 Tab PO QHS Indomethacin 50 Mg Capsule 1 Cap PO TID Reported Glycolax (Polyethylene Glycol 3350) 119 Gm Powder 17 Gm PO UD Hydrochlorothiazide Tablet (Hydrochlorothiazide) 12.5 Mg Tablet 25 Mg PO DAILY Aspir 81 (Aspirin) 81 Mg Tablet.dr 1 Tab PO DAILY Amlodipine Besylate 5 Mg Tablet 5 Mg PO DAILY Metoclopramide Hcl 10 Mg Tablet 10 Mg PO QIDACHS Soma (Carisoprodol) 350 Mg Tablet 350 Mg PO TID&HS Levemir (Insulin Detemir) 100 Unit/1 Ml Vial 70 Unit SQ HS Hydralazine Hcl 25 Mg Tablet 25 Mg PO BID Movantik (Naloxegol Oxalate) 25 Mg Tablet 25 Mg PO DAILY Zyrtec (Cetirizine Hcl) 10 Mg Tablet 10 Mg PO DAILY Loratadine 10 Mg Tablet 1 Tab PO DAILY Fluticasone Propionate Nasal [place] (Fluticasone Propionate) 16 Gm [place].susp Proair Hfa Inhaler (Albuterol Sulfate) 8.5 Gm Hfa.aer.ad 1 Puff INH PRN Q6HRS PRN Allopurinol 100 Mg Tablet 1 Tab PO DAILY Zetia (Ezetimibe) 10 Mg Tablet 1 Tab PO DAILY Nitrostat (Nitroglycerin) 0.4 Mg Tab.subl 0.4 Mg SL PRN Q5MIN PRN Estradiol 2 Mg Tablet 1 Tab PO DAILY Crestor (Rosuvastatin Calcium) 40 Mg Tablet 40 Mg PO HS Ranexa (Ranolazine) 1,000 Mg Tab.er.12h 1,000 Mg PO Pantoprazole Sodium (Pantoprazole Sodium) 40 Mg Tablet.dr 40 Mg PO DAILY Oxycodone Hcl Immed.release (Oxycodone Hcl) 15 Mg Tablet 1 Tab PO TID Novolog (Insulin Aspart) 100 Unit/1 Ml Cartridge 15 Unit SQ TID Gabapentin (Gabapentin) 300 Mg Capsule 1 Cap PO TID Magnesium (Magnesium Oxide) 400 Mg Capsule 1 Cap PO DAILY Clopidogrel (Clopidogrel Bisulfate) 75 Mg Tablet 75 Mg PO DAILY Coreg (Carvedilol) 25 Mg Tablet 1 Tab PO BID Clonidine Hcl 0.1 Mg Tablet 0.1 Mg PO BID Allergies Allergies: Coded Allergies: aspirin (Verified Allergy, Severe, SOB, CHEST PAIN, 08/05/21) latex (Verified Allergy, Severe, Swelling, 08/05/21) ROS Review of System Otherwise negative. Physical Exam General: Alert, Oriented X3, Cooperative, No acute distress Lungs: Clear to auscultation Heart: S1S2, RRR, no gallops, no murmurs Abdomen: Normal bowel sounds, Soft, No tenderness, No hepatosplenomegaly, No masses Rectal Exam: deferred (to procedure) Extremities: No cyanosis, No edema Skin: No significant lesion Neuro: Normal speech, Strength at 5/5 X4 ext, Normal tone, Sensation intact, Cranial nerves 3-12 NL, Reflexes 2+ Psych/Mental Status: Mental status NL, Mood NL Vitals Vitals Vital Signs Date Time Temp Pulse Resp B/P (MAP) Pulse Ox O2 Delivery O2 Flow Rate FiO2 08/05/21 13:01 97.5 97 20 99 97.5 VTE Prophylaxis Ordered VTE Prophylaxis Devices: No VTE Pharmacological Prophylaxi: No Assessment/Plan Assessment/Plan IMP: H/o polyps, due for surveillanace. PLAN: Colonoscopy. ENRIQUE LIMON MD August 05, 2021 13:12
--- NOTE | 2021-08-05 13:38 | PDOC4 ---
PROCEDURE Procedure Colonoscopy/biopsies Indication: h/o polyps Meds: per anesthesia Findings: PAUL--normal. --'Scope advanced to cecum. Prep adequate. Mucosa normal. Occasional diverticulum, sigmoid. 4-5 mm polyp, transverse, biopsied off. Second 4mm polyp in proximal sigmoid, biopsied off. IH's on retroflex, otherwise normal. [place]. well. IMP: Small polyps Diverticulosis IH's REC: resume diet, meds. Await path. F/u with me in 2 weeks. Repeat exam in 5 years. ENRIQUE LIMON MD August 05, 2021 13:38
[2021-08-05 14:15] VITALS: BP 133/74
--- NOTE | 2021-08-07 15:08 | PATHOLOGY ---
[facility] Accession Number: [id number] . 01 Material submitted: . PART A: colon - TRANSVERSE COLON POLYP BX PART B: sigmoid colon - SIGMOID COLON POLYP BX . 01 Clinical history: . CRC SCREEN . 02 Diagnosis: A. Colon biopsy, transverse colon polyp: - Tubular adenoma. . B. Colon biopsy, sigmoid colon polyp: - Tubular adenoma. . 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 02 Comment: Sections of the transverse colon biopsy reveal a tubular adenoma showing no high-grade dysplasia or evidence of malignancy. . Sections of the sigmoid colon biopsy reveal several segments of tubular adenoma and a single segment of colonic mucosa showing hyperplastic changes. There is no high-grade dysplasia or evidence of malignancy. . (JPM:niecy; 08/07/2021) . 02 Electronically signed: . Indio Bryson MD, Pathologist NPI- [id number] . 01 Gross description: . A. The specimen is received in formalin, labeled "Sal[place], [place], transverse colon polyp BX" and consists of a ellington irregular tissue measuring 0.3 x 0.3 x 0.2 cm which is filtered and submitted in toto in A1. . B. The specimen is received in formalin, labeled "Salmon, [place], sigmoid colon polyp BX" and consists of 3 ellington irregular tissues aggregating 0.7 x 0.6 x 0.2 cm which are filtered and submitted in toto in B1. (KOI; 08/06/2021) DKA/DKA 08/06/2021 1723 Local . 02 Pathologist provided ICD-10: D12.3, D12.5 . 02 CPT . 669588, [id number] Specimen Comment: A courtesy copy of this report has been sent to [phone], [phone] Specimen Comment: [id number] Specimen Comment: Report sent to / DR MENENDEZ Specimen Comment: A duplicate report has been generated due to demographic updates. Performed at: [facility] [address] [facility] [address], [place] [id number] MD Noah Cano MD Phone: [phone] [facility]formed at: [facility] [address] [place], [place] [id number] MD Indio Bryson MD Phone: [phone]
== END | disposition home or self-care (01) ==
LOC: ENDOS 12:31
PROVIDERS: ATTEND Internal Medicine Gastroenterology
DX: Z12.11 Encounter for screening for malignant neoplasm of colon (principal); K64.0 First degree hemorrhoids; K57.30 Diverticulosis of large intestine without perforation or abscess without bleeding; D12.3 Benign neoplasm of transverse colon; D12.5 Benign neoplasm of sigmoid colon; K63.89 Other specified diseases of intestine; I25.10 Atherosclerotic heart disease of native coronary artery without angina pectoris; K21.9 Gastro-esophageal reflux disease without esophagitis; M19.90 Unspecified osteoarthritis, unspecified site; E11.9 Type 2 diabetes mellitus without complications; M10.9 Gout, unspecified; F32.9 Major depressive disorder, single episode, unspecified; I11.0 Hypertensive heart disease with heart failure; I50.9 Heart failure, unspecified; E78.00 Pure hypercholesterolemia, unspecified; F17.210 Nicotine dependence, cigarettes, uncomplicated; Z79.82 Long term (current) use of aspirin; Z79.84 Long term (current) use of oral hypoglycemic drugs; Z79.899 Other long term (current) drug therapy; Z98.890 Other specified postprocedural states; Z90.710 Acquired absence of both cervix and uterus; Z91.040 Latex allergy status; Z88.8 Allergy status to other drugs, medicaments and biological substances
CPT/HCPCS: 45380; 88305; J2704